=== PATIENT | male | born 1995 | race African-American/Black ===

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

== ENCOUNTER 2017-03-30 03:59 | Inpatient (IN) | payer BC ==
[~2017-03-30] VITALS: Ht 182.9 cm; Wt 71.8 kg
[~2017-03-30 03:59] MED LIST: DPRSCR15 TOP; VNTHFA/IN INH; [UNRECOGNIZED DRUG - CODE] TOP
--- NOTE | 2017-03-30 04:30 | EMERGENCY ROOM VISIT NOTE ---
History Report prepared by [place]: Sapna Reyes Under the Supervision of: Dr. Michael Reyes D.O. First contact with patient: 04:08 Chief Complaint: MENTAL HEALTH EVALUATION Stated Complaint: MENTAL EVAL History of Present Illness The patient is a 21 year old male who presents to the Emergency Room with complaints of persistent suicidal ideation starting earlier today. The patient presents to the ED with [employer]. The patient had been having thoughts of hurting himself. He sat at his desk while staring at a pocket knife. He searched on the internet how to harm himself. The first result was a suicide prevention line and he decided to call. The patient states that he has had a rough year with in the family. He transferred to [employer] this semester. The transfer process has been difficult for him. He has had depression and suicidal ideation in the past. He is enrolled with [employer] at [facility] which he states has been helpful. Source of History: patient Onset: earlier today Position: other (global) Quality: other (suicidal ideation) Timing: other (persistent) Modifying Factors (Relieving): other ([employer]) Review of Systems See HPI for pertinent positives and negatives. A total of ten systems were reviewed and were otherwise negative. Past Medical & Surgical Medical Problems: (1) Asthma Family History No pertinent family history stated. Social History Smoking Status: Never Smoker Alcohol Use: none Drug Use: none Marital Status: single Housing Status: lives with roommate Occupation Status: [employer] student Current/Historical Medications Scheduled PRN Albuterol Hfa (Ventolin Hfa), 2-4 PUFFS INH UD PRN for SOB/Wheezing Allergies Coded Allergies: No Known Allergies (Unverified , 03/30/17) Physical Exam Vital Signs Date Time Temp Pulse Resp B/P (MAP) Pulse Ox O2 Delivery O2 Flow Rate FiO2 03/30/17 04:01 36.5 63 18 135/64 100 Room Air Physical Exam GENERAL: Awake, alert, well-appearing, in no distress HENT: Normocephalic, atraumatic. Oropharynx unremarkable. EYES: Normal conjunctiva. Sclera non-icteric. NECK: Supple. No nuchal rigidity. FROM. No JVD. RESPIRATORY: Clear to auscultation. CARDIAC: Regular rate, normal rhythm. Extremities warm and well perfused. Pulses equal. ABDOMEN: Soft, non-distended. No tenderness to palpation. No rebound or guarding. No masses. RECTAL: Deferred. MUSCULOSKELETAL: Chest examination reveals no tenderness. The back is symmetrical on inspection without obvious abnormality. There is no CVA tenderness to palpation. No joint edema. LOWER EXTREMITIES: Calves are equal size bilaterally and non-tender. No edema. No discoloration. NEURO: Normal sensorium. No sensory or motor deficits noted. SKIN: No rash or jaundice noted. PSYCH: Suicidal ideation. Tearful. Mild depression. Medical Decision & Procedures Laboratory Results 03/30/17 04:40 Red Blood Count 4.99, Mean Corpuscular Volume 75.8, Mean Corpuscular Hemoglobin 23.8, Mean Corpuscular Hemoglobin Concent 31.5, Mean Platelet Volume 9.9, Neutrophils (%) (Auto) 64.0, Lymphocytes (%) (Auto) 24.0, Monocytes (%) (Auto) 9.5, Eosinophils (%) (Auto) 1.9, Basophils (%) (Auto) 0.3, Neutrophils # (Auto) 5.00, Lymphocytes # (Auto) 1.87, Monocytes # (Auto) 0.74, Eosinophils # (Auto) 0.15, Basophils # (Auto) 0.02 03/30/17 04:40 Test 03/30/17 04:28 03/30/17 04:40 Urine Color YELLOW Urine Appearance CLEAR (CLEAR) Urine pH 5.0 (4.5-7.5) Urine Specific [place] 1.029 (1.000-1.030) Urine Protein TRACE (NEG) Urine Glucose (UA) NEG (NEG) Urine Ketones NEG (NEG) Urine Occult Blood NEG (NEG) Urine Nitrite NEG (NEG) Urine Bilirubin NEG (NEG) Urine Urobilinogen NEG (NEG) Urine Leukocyte Esterase NEG (NEG) Urine WBC (Auto) 1-5 /hpf (0-5) Urine RBC (Auto) 0-4 /hpf (0-4) Urine Hyaline Casts (Auto) 5-10 /lpf (0-5) Urine Epithelial Cells (Auto) 20-30 /lpf (0-5) Urine Bacteria (Auto) NEG (NEG) Urine Opiates Screen NEG (NEG) Urine Methadone, Qualitative NEG (NEG) Urine Barbiturates NEG (NEG) Urine Phencyclidine (PCP) Level NEG (NEG) Ur Amphetamine/Methamphetamine NEG (NEG) MDMA (Ecstasy) Screen NEG (NEG) Urine Benzodiazepines Screen NEG (NEG) Urine Cocaine Metabolite NEG (NEG) Urine Marijuana (THC) POS (NEG) White Blood Count 7.80 K/uL (4.8-10.8) Red Blood Count 4.99 M/uL (4.7-6.1) Hemoglobin 11.9 g/dL (14.0-18.0) Hematocrit 37.8 % (42-52) Mean Corpuscular Volume 75.8 fL (80-100) Mean Corpuscular Hemoglobin 23.8 pg (25-34) Mean Corpuscular Hemoglobin Concent 31.5 g/dl (32-36) Platelet Count 196 K/uL (130-400) Mean Platelet Volume 9.9 fL (7.4-10.4) Neutrophils (%) (Auto) 64.0 % Lymphocytes (%) (Auto) 24.0 % Monocytes (%) (Auto) 9.5 % Eosinophils (%) (Auto) 1.9 % Basophils (%) (Auto) 0.3 % Neutrophils # (Auto) 5.00 K/uL (1.4-6.5) Lymphocytes # (Auto) 1.87 K/uL (1.2-3.4) Monocytes # (Auto) 0.74 K/uL (0.11-0.59) Eosinophils # (Auto) 0.15 K/uL (0-0.5) Basophils # (Auto) 0.02 K/uL (0-0.2) RDW Standard Deviation 38.0 fL (36.4-46.3) RDW Coefficient of Variation 13.9 % (11.5-14.5) Immature Granulocyte % (Auto) 0.3 % Immature Granulocyte # (Auto) 0.02 K/uL (0.00-0.02) Anion Gap 4.0 mmol/L (3-11) Est Creatinine Clear Calc Drug Dose 104.0 ml/min Estimated GFR () 105.2 Estimated GFR (Non- 90.8 BUN/Creatinine Ratio 17.4 (10-20) Calcium Level 8.5 mg/dl (8.5-10.1) Total Bilirubin 0.4 mg/dl (0.2-1) Direct Bilirubin 0.1 mg/dl (0-0.2) Aspartate Amino Transf (AST/SGOT) 39 U/L (15-37) Alanine Aminotransferase (ALT/SGPT) 36 U/L (12-78) Alkaline Phosphatase 88 U/L (45-117) Total Protein 7.7 gm/dl (6.4-8.2) Albumin 3.9 gm/dl (3.4-5.0) Thyroid Stimulating Hormone (TSH) 5.380 uIu/ml (0.300-4.500) Ethyl Alcohol mg/dL < 3.0 mg/dl (0-3) Laboratory results reviewed by me ED Course 0410: The patient was evaluated in room A8. A complete history and physical exam was performed. Medical Decision Differential diagnosis: Etiologies such as mood disorder, infection, hypoglycemia, electrolyte abnormalities, cardiac sources, intracerebral event, toxicologic, neurologic, as well as others were entertained. Medication Reconcilliation Current Medication List: was personally reviewed by me Blood Pressure Screening Patient's blood pressure: Elevated blood pressure Blood pressure disposition: Elevated BP felt to be situational Impression Primary Impression: Suicidal ideation Additional Impression: Depression Scribe Attestation The scribe's documentation has been prepared under my direction and personally reviewed by me in its entirety. I confirm that the note above accurately reflects all work, treatment, procedures, and medical decision making performed by me. Departure Information Dispostion Mental Health Acute Care Referrals No Doctor, Assigned (PCP) Patient Instructions My [facility] Problem Qualifiers
[2017-03-30 05:02] LABS: BASO % 0.3 %; BASO ABS # 0.02 K/uL (0-0.2); COMPLETE YES; EOS % 1.9 %; HEMATOCRIT 37.8 % (42-52); IG% 0.3 %; LYMPH ABS # 1.87 K/uL (1.2-3.4); MEAN CELL VOLUME 75.8 fL (80-100); MEAN CORPUSCULAR HEMOGLOBIN 23.8 pg (25-34); MEAN CORPUSCULAR HGB CONC 31.5 g/dl (32-36); MEAN PLATELET VOLUME 9.9 fL (7.4-10.4); MONO % 9.5 %; PLATELET COUNT 196 K/uL (130-400); RED BLOOD COUNT 4.99 M/uL (4.7-6.1)
[2017-03-30 05:06] LABS: URINE APPEARANCE CLEAR (CLEAR); URINE COLOR YELLOW; URINE SPECIFIC GRAVITY 1.029 (1.000-1.030)
[2017-03-30 05:07] LABS: URINE BILIRUBIN NEG (NEG); URINE EPITHELIAL CELL AUTO 20-30 /lpf (0-5); URINE NITRITE NEG (NEG); UROBILINOGEN NEG (NEG)
[2017-03-30 05:23] LABS: BUN/CREATININE RATIO 17.4 (10-20); CALCIUM 8.5 mg/dl (8.5-10.1); CREATININE 1.16 mg/dl (0.60-1.40); POTASSIUM 3.7 mmol/L (3.5-5.1)
[2017-03-30 05:25] LABS: MANUAL MICROSCOPIC REQUIRED? NO; REVIEW REQ? NO
[2017-03-30 05:28] LABS: BENZODIAZEPINE, URINE NEG (NEG); COCAINE,URINE NEG (NEG); PHENCYCLIDINE, URINE NEG (NEG)
[2017-03-30 05:34] LABS: THYROID STIMULATING HORMONE 5.38 uIu/ml (0.300-4.500)
[2017-03-30] MEDS ORDERED: NURSING VERBAL MED ORDER ONE (07:45)
[2017-03-30 08:06] VITALS: O2SAT 100
[2017-03-30] MEDS ORDERED: hydrOXYzine HCL 25 MG TAB PO PRN ×2 (08:15)
[2017-03-30] MEDS ORDERED: SODIUM CHLORIDE 0.65% NA SOLN 45 ML (OCEAN) PRN (08:15)
[2017-03-30] MEDS ORDERED: ALUMINUM/MAGNESIUM SUSP 30 ML UDC PO PRN (08:15)
[2017-03-30] MEDS ORDERED: MAGNESIUM HYDROXIDE SUSP 30 ML UDC PO PRN (08:15)
[2017-03-30] MEDS ORDERED: BISMUTH SUBSALICYLATE PER ML OMNICELL CHARGE PO PRN (08:15)
[2017-03-30] MEDS ORDERED: COUGH DROP (SUGAR FREE) LOZ 24 LOZ/1 BOX ONE (08:17)
[2017-03-30] MEDS: ACETAMINOPHEN 325 MG TAB PO PRN ×2 (08:19→17:45)
[2017-03-30 09:01] VITALS: BP 110/74; PULSE 53; TEMP 36.5; Ht 182.9 cm; Wt 71.8 kg
--- NOTE | 2017-03-30 11:27 | Psychiatric History & Physical ---
History Date of Service Mar 30, 2017. 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 He was admitted on a 201 voluntary commitment. Chief Complaint "This year has been pretty terrible". History of Present Illness Patient seen with Romelia Vázquez PA. According to records, he recently transferred from [facility] [employer] [facility] and has had a hard time with the transition. He called a national suicide hotline and told them he was researching ways to commit suicide and was "about 96% sure I was going to go through with it." They referred him to [facility] help, who notified the [facility] police, who brought him to the emergency room. He reported the of 2 family members prior to [place]. He has been seeing a therapist, Addis, at [facility] weekly the semester, but denied any other mental health treatment. He was willing for admission. Today, he was seen with [place]. He reports that his first semester he went to a small school in [place] on a track scholarship, "but it was so terrible , I transferred out of there." His second semester he went to [employer], which he says was "my first real college experience, I didn't take advantage of all the resources, was kind of just lost." He failed every class his freshman year, so then took summer classes last summer, passed them, and then transferred to [employer]. He says the transfer process has been "terrible," his advisor "messed up my schedule," so he only has 2 classes, as he dropped some that were "completely irrelevant." He was telling people "everything's cool," but says "it's been eating me." He started therapy with Kareen at [facility] when he started school here, because "Topaz went so terribly, just wanted a safety net." He thinks it has been helpful. She suggested he try an antidepressant, but he was "afraid to," stating that he's never taken medication unless he was sick. His uncle in 12/2016, was ill and not unexpected, but a couple days later another aunt and uncle lost one of their twins after she went into labor early. These losses caused "flashbacks" to last fall when his cousin committed suicide. He got a "support animal," a puppy, which has helped. He has had hair loss for which he was seen in the ER and was attributed to "stress." He endorses low mood, worst it's ever been, excessive sleep (all day), decreased concentration (he thinks due to not liking his classes), and appetite has been good and denies weight changes (chronic difficulty putting on weight due to "high metabolism).He has not been going to class for the past week, has been less social (not going to football games), and for the past week was "just sitting in my room and staring" at his [employer] knife, "if I wanted to do damage with it, I could." He feels life is not worth living, and was researching ways to commit suicide online, specifically slitting his wrists. While online he saw an ad for a national suicide prevention hotline, so he called, and they put him in touch with [facility]. He admits to past episodes of suicidal thoughts, in high school thought about cutting himself but never acted on it, and again last semester. He notes that he doesn't like drinking, as his neighbor in a drunk driving accident, so doesn't enjoy some of the social activities at [facility]. He reports " stressing all the time, 24-7," and feels on edge and worried, specifically about his dissatisfaction with the transfer process and classes, and has had more frequent headaches and hair loss due to stress. Denies full panic attacks, although has had some physical symptoms with anxiety when frustrated. Has history of "throwing temper tantrums, issues with my anger," last about a year ago, would yell and get into fights with father. More recently has held anger in and will "just shut down, just give up on everything, sleep for a long time. " Denies current thoughts of harming others. He denies symptoms of jenaro, psychosis, PTSD, OCD, and eating disorder. Past Psychiatric History Current OP Treatment: therapist (Addis Medina at [facility]) Prior OP Treatment: no prior treatment Prior Psych Hospitalizations: none Access to a Gun: No Suicide Attempts: No Past Medication Trials None. Past Medical/Surgical History History of Concussion/Seizure: Yes (mild consussion in 7th grade, no sequale) (1) Asthma Sexually active, uses condoms. Allergies Allergies: Coded Allergies: No Known Allergies (Unverified , 03/30/17) Home Medications Scheduled PRN Albuterol Hfa (Ventolin Hfa), 2-4 PUFFS INH UD PRN for SOB/Wheezing Family History History of Suicide: Yes (cousin committed suicide last fall) History of Substance Abuse: No Psychiatric History: Yes (Mom saw therapist when patient in and family was under stress, but no known diagnosis) Alcohol Use Alcohol Use In Past 12 Months: No AUDIT Total Score: 0 Smoking Use Smoking Status: Never Smoker Substance History Drug screen positive for marijuana. Patient states he "used it in the past, but not anymore," says last use was 3-4 months ago at the beginning of the school year, and that he was using it for sleep. Denies other recreational drug use, prescription medication abuse, synthetics, OTC med abuse. Has cut back on soda intake, now minimal caffeine. [place] [facility] [place] Childhood: Raised by both parents, one older brother who graduated from [employer] in 2016. Good support from friend Raffaele. Education: started college (This is his 3rd college - majoring in Communications and Music Production) Work History: unemployed Relationship History: never (not in a relationship, but is sexually active) Children: None Legal History: none Psychological Trauma History: Significant Loss (deaths of multiple extended family members), Other (feels traumatized by father losing his job when he was in , says father was "framed," and they had financial strain.) Review of Systems 10 systems reviewed, negative except as stated above. Examination Physical Examination A physical exam was performed in the ER prior to admission to the unit by Dr. Michael Reyes. I accept that physical as correct/medical clearance for the inpatient physical exam. Vital Signs Vital Signs Past 12 Hours Date Time Temp Pulse Resp B/P (MAP) Pulse Ox O2 Delivery O2 Flow Rate FiO2 03/30/17 09:01 36.5 53 18 110/74 03/30/17 08:06 71 16 120/75 100 03/30/17 04:01 36.5 63 18 135/64 100 Room Air Laboratory Results Last 24 Hours Test 03/30/17 04:28 03/30/17 04:40 Urine Color YELLOW Urine Appearance CLEAR Urine pH 5.0 Urine Specific Edwards 1.029 Urine Protein TRACE Urine Glucose (UA) NEG Urine Ketones NEG Urine Occult Blood NEG Urine Nitrite NEG Urine Bilirubin NEG Urine Urobilinogen NEG Urine Leukocyte Esterase NEG Urine WBC (Auto) 1-5 /hpf Urine RBC (Auto) 0-4 /hpf Urine Hyaline Casts (Auto) 5-10 /lpf Urine Epithelial Cells (Auto) 20-30 /lpf Urine Bacteria (Auto) NEG Urine Opiates Screen NEG Urine Methadone, Qualitative NEG Urine Barbiturates NEG Urine Phencyclidine (PCP) Level NEG Ur Amphetamine/Methamphetamine NEG MDMA (Ecstasy) Screen NEG Urine Benzodiazepines Screen NEG Urine Cocaine Metabolite NEG Urine Marijuana (THC) POS White Blood Count 7.80 K/uL Red Blood Count 4.99 M/uL Hemoglobin 11.9 g/dL Hematocrit 37.8 % Mean Corpuscular Volume 75.8 fL Mean Corpuscular Hemoglobin 23.8 pg Mean Corpuscular Hemoglobin Concent 31.5 g/dl Platelet Count 196 K/uL Mean Platelet Volume 9.9 fL Neutrophils (%) (Auto) 64.0 % Lymphocytes (%) (Auto) 24.0 % Monocytes (%) (Auto) 9.5 % Eosinophils (%) (Auto) 1.9 % Basophils (%) (Auto) 0.3 % Neutrophils # (Auto) 5.00 K/uL Lymphocytes # (Auto) 1.87 K/uL Monocytes # (Auto) 0.74 K/uL Eosinophils # (Auto) 0.15 K/uL Basophils # (Auto) 0.02 K/uL RDW Standard Deviation 38.0 fL RDW Coefficient of Variation 13.9 % Immature Granulocyte % (Auto) 0.3 % Immature Granulocyte # (Auto) 0.02 K/uL Sodium Level 136 mmol/L Potassium Level 3.7 mmol/L Chloride Level 104 mmol/L Carbon Dioxide Level 28 mmol/L Anion Gap 4.0 mmol/L Blood Urea Nitrogen 20 mg/dl Creatinine 1.16 mg/dl Est Creatinine Clear Calc Drug Dose 104.0 ml/min Estimated GFR () 105.2 Estimated GFR (Non- 90.8 BUN/Creatinine Ratio 17.4 Random Glucose 79 mg/dl Calcium Level 8.5 mg/dl Total Bilirubin 0.4 mg/dl Direct Bilirubin 0.1 mg/dl Aspartate Amino Transf (AST/SGOT) 39 U/L Alanine Aminotransferase (ALT/SGPT) 36 U/L Alkaline Phosphatase 88 U/L Total Protein 7.7 gm/dl Albumin 3.9 gm/dl Thyroid Stimulating Hormone (TSH) 5.380 uIu/ml Ethyl Alcohol mg/dL < 3.0 mg/dl Mental Examination During interview pt is: alert and oriented, cooperative Appearance: appropriately dressed, appropriately groomed, appeared stated age Eye contact is: good Motor behavior is: steady gait & station, no abnormal motor movements Speech: normal in rate, rhythm & volume Affect: depressed (but reactive, appropriate), tearful (briefly when discussing losses) Mood is: depressed Thought process: goal directed, circumstantial Thought content: reality based without delusions Suicidal thought are: present Homicidal thoughts are: denied Hallucinations: denies auditory, denies visual Cognition: memory grossly intact, attention grossly intact, language grossly intact Intelligence estimated to be: consistent with level of education Insight: fair Judgement: fair Impression / Recommendations Impression 21y/o single male [employer] student from [place], [place] who presents with SI and was researching how to commit suicide by in the context of school stress (has attended 3 colleges in the past year and a half) and multiple losses/deaths of family members. He has a therapist at [facility] but has never been on medications or seen a psychiatrist. He would benefit from Inventory Assets Strengths: Has therapist, in school Needs: Increased supports and OP care Risk Factors Assessment Male: Yes : No /single/: Yes Higher / Fall in social status: No Access to guns: No Health problems: No Mental Health Diagnoses: Yes Substance use disorders: No Previous attempt: No Family history of suicide: Yes Previous psychiatric stay: No Hopelessness: Yes Smoker: No Protective Factors Assessment : No Responsible for young children: No Employed: No Stable relationships: Yes (but few friends here) Supportive family: Yes (but they're unaware of SI) Good rapport with provider: Yes (therapist) Absence of risk factors above: Yes Recommendations (1) Depression 03/30 - Reviewed diagnosis and treatment recommendations, including medication, therapy, and behavioral techniques for improving mood. He is declining antidepressant medication at this time, but can discuss further if he changes his mind. Reviewed sertraline and provided him with Up To Date patient handout about the medication. - Rule out hypothyroidism as contributing cause - check free T4. - Educate about risks of cannabis abuse including risk of worsening mood and anxiety. - Refer for OP psychiatric f/u, explore ways to increase supports locally (join clubs). - Family meeting with parents. (2) Suicidal ideation Q 15 min checks for safety here. Encourage group attendance and participation, work on healthy coping skills and discharge safety plan. (3) Asthma Continue Albuterol prn. CPT Code Initial Hospital Care: 40371 Problem Qualifiers (1) Depression: Depression Type: major depressive disorder Major depression recurrence: recurrent Active/Remission status: currently active Major depression episode severity: severe Psychotic features: without psychotic features Qualified Codes: F33.2 - Major depressive disorder, recurrent severe without psychotic features
[2017-03-30] MEDS ORDERED: ALBUTEROL HFA 8 GM INHALER INH PRN (11:30)
[2017-03-31] MEDS: ACETAMINOPHEN 325 MG TAB PO PRN ×2 (01:03→11:20)
[2017-03-31 07:05] VITALS: BP_SYST 110; BP_SYST 114; BP_DIAS 60; BP_DIAS 70; PULSE 47; PULSE 74; TEMP 36.8
--- NOTE | 2017-03-31 08:04 | Psychiatric Progress Notes ---
Progress Note Date of Service Mar 31, 2017. 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 He was admitted on a 201 voluntary commitment. Chief Complaint "Great". Subjective Patient was seen & assessed interval progress reviewed with Nursing. Staff report he has been anxious, asked staff to help him call his mother, and had a good visit with his cousin. He talked about strain within the family, and wants to work on reconciling with his brother. Today, he states that his mood and suicidal thoughts have improved since admission, and he is surprised at how good he feels. He thinks that alleviating factors are that he is in the hospital, is talking about his issues in groups, is away from school and from his phone and social media, and had a good visit with his cousin Radha. He said they had a good talk, and "he put a lot of things in perspective." He also feels very relieved after staff assisted him to call his parents yesterday , stating that he has never been able to tell them about his feelings and suicidal thoughts, and feels "so much better after talking to them." He has been talking about his stressors, and wants to work on reconnecting with his brother, stating that he didn't realize before how much it was bothering him that their relationship has been more distant. He reports good sleep and appetite here, and has a family meeting tomorrow. Sleep Information Total Hours of Sleep: 7.00 Meal Information Percent of Breakfast Consumed: 50 Percent of Lunch Consumed: 90 Percent of Dinner Consumed: 75 Mental Status Exam During interview pt is: alert and oriented, cooperative Appearance: appropriately dressed, appropriately groomed, appeared stated age Eye contact is: good Motor behavior is: steady gait & station, no abnormal motor movements Speech: normal in rate, rhythm & volume Affect: mood congruent, euthymic Mood is: other ("great") Thought process: goal directed Thought content: reality based without delusions Suicidal thought are: denied Homicidal thoughts are: denied Hallucinations: denies auditory, denies visual Cognition: memory grossly intact, attention grossly intact, language grossly intact Intelligence estimated to be: consistent with level of education Insight: fair Judgement: fair Impression 21y/o single male [employer] student from [place] who presents with SI and was researching how to commit suicide by cutting his wrists in the context of school stress (has attended 3 colleges in the past year and a half) and multiple losses/deaths of family members. He has a therapist at [facility] but has never been on medications or seen a psychiatrist. He would benefit from education about his diagnosis, exploring ways to increase his supports, a family meeting, and coordination with his outpatient therapist. He is unwilling to take antidepressant medications, but we will continue to educate and offer this option if he becomes willing. Plan (1) Depression 03/30 - Reviewed diagnosis and treatment recommendations, including medication, therapy, and behavioral techniques for improving mood. He is declining antidepressant medication at this time, but can discuss further if he changes his mind. Reviewed sertraline and provided him with Up To Date patient handout about the medication. - Rule out hypothyroidism as contributing cause - check free T4. - Educate about risks of cannabis abuse including risk of worsening mood and anxiety. - Refer for OP psychiatric f/u, explore ways to increase supports locally (join clubs). - Family meeting with parents. 03/31 - Remains unwilling for medications, but will continue to provide education and support. - Family meeting scheduled for tomorrow with parents. - Will need to coordinate with his therapist at [facility] tomorrow, and work on discharge safety plan -unclear if he will be returning home after discharge vs staying on campus. - Free T4 1.14, within normal limits. (2) Suicidal ideation Q 15 min checks for safety here. Encourage group attendance and participation, work on healthy coping skills and discharge safety plan. (3) Asthma Continue Albuterol prn. Discharge / Aftercare Planning Primary Care Physician: Name: [facility] Therapist: Name: Addis Medina at [facility] Visit Code E&M Code: 97689 Inventory Assets Strengths: Has therapist, in school Needs: Increased supports and OP care Risk Factors Assessment Male: Yes : No /single/: Yes Higher / Fall in social status: No Health problems: No Mental Health Diagnoses: Yes Substance use disorders: No Previous attempt: No Family history of suicide: Yes Previous psychiatric stay: No Hopelessness: Yes Smoker: No Protective Factors Assessment : No Responsible for young children: No Employed: No Stable relationships: Yes (but few friends here) Supportive family: Yes (but they're unaware of SI) Good rapport with provider: Yes (therapist) Absence of risk factors above: Yes Data Vital Signs Last 24 Hrs: Date Time Temp Pulse Resp B/P (MAP) Pulse Ox O2 Delivery O2 Flow Rate FiO2 03/31/17 07:05 36.8 47 16 114/70 74 110/60 03/30/17 09:01 36.5 53 18 110/74 03/30/17 08:06 71 16 120/75 100 Meds Administered Last 24 Hrs: Meds Administered (Past 24Hrs) Medications (Trade) Dose Ordered Sig/Stanley Route Start Time Stop Time Status Last Admin Dose Admin Acetaminophen (Tylenol Tab) 650 mg Q4H PRN PO 03/30/17 08:15 04/29/17 08:14 03/31/17 01:03 650 MG Menthol (Nice Kelsie) 24 kelsie STK-MED ONCE .ROUTE 03/30/17 08:17 03/30/17 08:18 DC 03/30/17 08:19 24 KELSIE Lab Results Last 24 Hrs: Last 24 Hours Test 03/30/17 11:36 Free Thyroxine 1.14 ng/dl Problem Qualifiers (1) Depression: Depression Type: major depressive disorder Major depression recurrence: recurrent Active/Remission status: currently active Major depression episode severity: severe Psychotic features: without psychotic features Qualified Codes: F33.2 - Major depressive disorder, recurrent severe without psychotic features
[2017-04-01 07:16] VITALS: BP_SYST 113; BP_SYST 128; BP_DIAS 72; BP_DIAS 73; PULSE 48; PULSE 69; TEMP 36.4
--- NOTE | 2017-04-01 15:07 | Discharge Instructions ---
Discharge Information Report Includes Report will include the: Discharge Instructions & Summary Admission Admission Date / Time: Mar 30, 2017 at 07:34 Reason for Admission: Depression Nos Discharge Discharge Diagnosis / Problem: Depression and suicidal ideation Condition at Discharge: Good Discharge Goals Goal(s): Improve function, Improve disease control, Learn about illness, Therapeutic intervention Activity Recommendations Activity Limitations: per Instructions/Follow-up section . Instructions / Follow-Up Instructions / Follow-Up . SPECIAL CARE INSTRUCTIONS: 1. Follow through with your scheduled aftercare appointments. If unable to keep an appointment, please call to reschedule. 2. You are not on antidepressant medication, but may want to consider this treatment option if mood symptoms do not approve with therapy alone. 3. Utilize new healthy coping skills, anger management skills, and stress management skills learned during your hospitalization. Journal feelings and process them with a support person. Identify stressors or situations that may result in relapse, deterioration or inappropriate behaviors and develop a plan to deal with those issues. 4. If your coping skills are ineffective and you are in crisis, contact your outpatient providers for direction. If unable to reach your providers, please call the [facility] LINE AT or go to the closest Emergency Room. 5. Avoid alcohol and un-prescribed drugs. 6. You have been provided with the Mental Health Advance Directives Pamphlet for your review. AFTERCARE APPOINTMENTS: * Please call your insurance company prior to your scheduled appointment to confirm your aftercare providers are covered. Take your insurance information to your appointments. . Discharge / Aftercare Planning Primary Care Physician: Name: [facility] Therapist: Name Of Therapist: Addis Medina at [facility] . Follow-Up Care Plan for Follow-Up Care: Follow up with your PCP at home over the winter break, and resume therapy at [facility] when you return for the spring. Current Hospital Diet Patient's current hospital diet: Regular Diet Discharge Diet Recommended Diet: Regular Diet Procedures Procedures Performed: No Pending Studies Pending Studies at Discharge: No Medical Emergencies . Who to Call and When: Medical Emergencies: For questions or emergencies related to your hospital stay, please contact the Inpatient Behavioral Health Unit at [phone]. A scow derrick operator is on-call 19/11 for the Behavioral Health Unit for emergencies At any time you feel your situation is an emergency, you may also call 911 immediately. . Non-Emergent Contact Non-Emergency issues call your: Primary Care Provider, Therapist Past History Medical & Surgical History: (1) Asthma Advance Directives Existing Advance Directive: No Do You Have an Existing Mental: No Existing Living Will: No Existing Power of Home Energy Auditor: No Advance Directives Info Given: To Pt/S.O. Advance Directives Reason: Declines as Mental Health Visit. Discharge Summary Admission HPI Per the Admitting provider: Patient seen with Romelia Vázquez PA. According to records, he recently transferred from [facility] and has had a hard time with the transition. He called a national suicide hotline and told them he was researching ways to commit suicide and was "about 96% sure I was going to go through with it." They referred him to [facility] help, who notified the [facility] police, who brought him to the emergency room. He reported the of 2 family members prior to [place]. He has been seeing a therapist, Addis, at [facility] weekly the semester, but denied any other mental health treatment. He was willing for admission. Today, he was seen with SOFIA Dye. He reports that his first semester he went to a small school in [place] on a track scholarship, "but it was so terrible , I transferred out of there." His second semester he went to [employer], which he says was "my first real college experience, I didn't take advantage of all the resources, was kind of just lost." He failed every class his freshman year, so then took summer classes last summer, passed them, and then transferred to [employer]. He says the transfer process has been "terrible," his advisor "messed up my schedule," so he only has 2 classes, as he dropped some that were "completely irrelevant." He was telling people "everything's cool," but says "it's been eating me." He started therapy with Kareen at [facility] when he started school here, because "Bellaire went so terribly, just wanted a safety net." He thinks it has been helpful. She suggested he try an antidepressant, but he was "afraid to," stating that he's never taken medication unless he was sick. His uncle in 12/2016, was ill and not unexpected, but a couple days later another aunt and uncle lost one of their twins after she went into labor early. These losses caused "flashbacks" to last fall when his cousin committed suicide. He got a "support animal," a puppy, which has helped. He has had hair loss for which he was seen in the ER and was attributed to "stress." He endorses low mood, worst it's ever been, excessive sleep (all day), decreased concentration (he thinks due to not liking his classes), and appetite has been good and denies weight changes (chronic difficulty putting on weight due to "high metabolism).He has not been going to class for the past week, has been less social (not going to football games), and for the past week was "just sitting in my room and staring" at his [employer] knife, "if I wanted to do damage with it, I could." He feels life is not worth living, and was researching ways to commit suicide online, specifically slitting his wrists. While online he saw an ad for a national suicide prevention hotline, so he called, and they put him in touch with [facility]. He admits to past episodes of suicidal thoughts, in high school thought about cutting himself but never acted on it, and again last semester. He notes that he doesn't like drinking, as his neighbor in a drunk driving accident, so doesn't enjoy some of the social activities at [facility]. He reports " stressing all the time, 24-7," and feels on edge and worried, specifically about his dissatisfaction with the transfer process and classes, and has had more frequent headaches and hair loss due to stress. Denies full panic attacks, although has had some physical symptoms with anxiety when frustrated. Has history of "throwing temper tantrums, issues with my anger," last about a year ago, would yell and get into fights with father. More recently has held anger in and will "just shut down, just give up on everything, sleep for a long time. " Denies current thoughts of harming others. He denies symptoms of jenaro, psychosis, PTSD, OCD, and eating disorder. Admission Exam Per the Admitting provider: Please see admission H&P. Consultations None. Hospital Course (1) Depression 03/30 - Reviewed diagnosis and treatment recommendations, including medication, therapy, and behavioral techniques for improving mood. He is declining antidepressant medication at this time, but can discuss further if he changes his mind. Reviewed sertraline and provided him with Up To Date patient handout about the medication. - Rule out hypothyroidism as contributing cause - check free T4. - Educate about risks of cannabis abuse including risk of worsening mood and anxiety. - Refer for OP psychiatric f/u, explore ways to increase supports locally (join clubs). - Family meeting with parents. 03/31 - Remains unwilling for medications, but will continue to provide education and support. - Family meeting scheduled for tomorrow with parents. - Will need to coordinate with his therapist at [facility] tomorrow, and work on discharge safety plan -unclear if he will be returning home after discharge vs staying on campus. - Free T4 1.14, within normal limits. 04/01 - Family meeting with parents who are supportive and felt comfortable with discharge to their care today. They will be taking him home and he will follow up with his PCP there. He is not on medication so has not been referred to a psychiatrist. He will resume therapy at [facility] when he returns for the spring. (2) Suicidal ideation Q 15 min checks for safety here. Encourage group attendance and participation, work on healthy coping skills and discharge safety plan. (3) Asthma Continue Albuterol prn. Risk Factors Assessment Male: Yes : No /single/: Yes Higher / Fall in social status: No Access to guns: No Health problems: No Mental Health Diagnoses: Yes Substance use disorders: No Previous attempt: No Family history of suicide: Yes Previous psychiatric stay: No Hopelessness: Yes Smoker: No Protective Factors Assessment : No Responsible for young children: No Employed: No Stable relationships: Yes (but few friends here) Supportive family: Yes (but they're unaware of SI) Good rapport with provider: Yes (therapist) Absence of risk factors above: Yes (risk factors were mitigated by admission to the inpatient unit, educating patient about his diagnosis and the treatment recommendations including the option of medications which he ultimately declined , involving him in groups and therapy, working on healthy coping skills any discharge safety plan, coordinating with the [facility], and a family meeting with his parents. Mood has improved here, he has consistently denied suicidal thoughts, and he is requesting discharge. His parents are in favor of discharge and feel safe taking him home, and as he is no longer at acute risk of harm to himself, he can be managed as an outpatient at this time.) Day of Discharge Assessment Hospital course: On admission, the patient was educated about his diagnosis and the treatment recommendations/options, including medication, therapy, and modifying his stressors. He was not interested in taking medication, but we did review SSRI antidepressants and more detailed information about sertraline as one treatment option. TSH was elevated on admission so free T4 was checked to rule out hypothyroidism as a kitchen meeting cause of depression, but it was normal. He was educated about the risks of cannabis use including worsening of mood and anxiety and the recommendations for abstinence, which he agreed to. He asked staff to assist him in contacting his parents as he was nervous about telling them about his depression and suicidal thoughts, but he was able to contact them by phone, they were supportive, and he felt relieved afterwards. He processed his stressors, including multiple losses and feeling more distant in his relationship with his brother. He attended groups and participated, work on healthy coping skills and his discharge safety plan. He consistently denied suicidal thoughts throughout his stay, was appropriate in his interactions with others, doing ADLs independently, and eating and sleeping well. Day of discharge assessment: The patient reports his mood is improving and says it is "great." He denies suicidal thoughts and is able to review his safety plan. He feels supported by friends and family, and wants to work on better communication with them about how he is feeling. 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 He will follow-up with his PCP at home over the break, and plans to return to [facility] for the spring and can then resume therapy at [facility]. He is requesting discharge, and denies any safety concerns with leaving the hospital. His parents are in agreement with discharge and feel safe taking him home. Thin black male appearing stated age. Casually dressed and adequately groomed. Calm and cooperative. Seated in NAD, with fair eye contact and no abnormal movements. Speech is normal rate, volume, and tone. Mood is "great," and affect is stable and congruent. Thoughts are linear, logical and goal directed. The patient denied suicidal and homicidal ideation and was able to safety plan. No paranoia, delusions, or hallucinations, and did not appear to be responding to internal stimuli. Cognition was grossly intact. Alert and oriented to person, place and time. Intelligence is consistent with level of education. Insight and and judgment are fair. Laboratory Test 03/30/17 04:28 03/30/17 04:40 03/30/17 11:36 Urine Color YELLOW Urine Appearance CLEAR Urine pH 5.0 Urine Specific Logan 1.029 Urine Protein TRACE Urine Glucose (UA) NEG Urine Ketones NEG Urine Occult Blood NEG Urine Nitrite NEG Urine Bilirubin NEG Urine Urobilinogen NEG Urine Leukocyte Esterase NEG Urine WBC (Auto) 1-5 Urine RBC (Auto) 0-4 Urine Hyaline Casts (Auto) 5-10 Urine Epithelial Cells (Auto) 20-30 Urine Bacteria (Auto) NEG Urine Opiates Screen NEG Urine Methadone, Qualitative NEG Urine Barbiturates NEG Urine Phencyclidine (PCP) Level NEG Ur Amphetamine/Methamphetamine NEG MDMA (Ecstasy) Screen NEG Urine Benzodiazepines Screen NEG Urine Cocaine Metabolite NEG Urine Marijuana (THC) POS Urine Marijuana (THC Carboxy Acid) 172 White Blood Count 7.80 Red Blood Count 4.99 Hemoglobin 11.9 Hematocrit 37.8 Mean Corpuscular Volume 75.8 Mean Corpuscular Hemoglobin 23.8 Mean Corpuscular Hemoglobin Concent 31.5 Platelet Count 196 Mean Platelet Volume 9.9 Neutrophils (%) (Auto) 64.0 Lymphocytes (%) (Auto) 24.0 Monocytes (%) (Auto) 9.5 Eosinophils (%) (Auto) 1.9 Basophils (%) (Auto) 0.3 Neutrophils # (Auto) 5.00 Lymphocytes # (Auto) 1.87 Monocytes # (Auto) 0.74 Eosinophils # (Auto) 0.15 Basophils # (Auto) 0.02 RDW Standard Deviation 38.0 RDW Coefficient of Variation 13.9 Immature Granulocyte % (Auto) 0.3 Immature Granulocyte # (Auto) 0.02 Sodium Level 136 Potassium Level 3.7 Chloride Level 104 Carbon Dioxide Level 28 Anion Gap 4.0 Blood Urea Nitrogen 20 Creatinine 1.16 Est Creatinine Clear Calc Drug Dose 104.0 Estimated GFR () 105.2 Estimated GFR (Non- 90.8 BUN/Creatinine Ratio 17.4 Random Glucose 79 Calcium Level 8.5 Total Bilirubin 0.4 Direct Bilirubin 0.1 Aspartate Amino Transferase (AST) 39 Alanine Aminotransferase (ALT) 36 Alkaline Phosphatase 88 Total Protein 7.7 Albumin 3.9 Thyroid Stimulating Hormone (TSH) 5.380 Ethyl Alcohol mg/dL < 3.0 Free Thyroxine 1.14 Total Time Total Time Spent (min): Greater than 30 minutes Total Time Included: examination of the patient, discharge planning Tobacco Cessation at Discharge Smoking Status: Never Smoker FDA approved Prescription: non-smoker Problem Qualifiers (1) Depression: Depression Type: major depressive disorder Major depression recurrence: recurrent Active/Remission status: currently active Major depression episode severity: severe Psychotic features: without psychotic features Qualified Codes: F33.2 - Major depressive disorder, recurrent severe without psychotic features
== END 2017-04-01 15:58 | disposition home or self-care (01) | DRG 885 ==
LOC: C.EDB 04:00 → C.MHU 07:34
PROVIDERS: ADMIT Psychiatry & Neurology Psychiatry; ATTEND Psychiatry & Neurology Psychiatry
DX: F33.2 Major depressive disorder, recurrent severe without psychotic features (principal); R45.851 Suicidal ideations; J45.909 Unspecified asthma, uncomplicated; Z81.8 Family history of other mental and behavioral disorders